=== PATIENT | female | born 1945 | race Caucasian/White ===

== ENCOUNTER 2019-12-14 20:20 | Observation (INO) ==
[2019-12-14] MEDS ORDERED: Furosemide 20 MG/2 ML VIAL IVP ONE (20:41)
[2019-12-14 21:01] LABS: Bilirubin,Urine Negative (Negative); Blood,Urine Trace-intact (Negative); Clarity,Urine Clear (Clear); Color,Urine Yellow (Yellow); Glucose,Urine (UA) Normal (Normal); Ketones,Urine Negative (Negative); Leukocyte Esterase,Urine Moderate (Negative); Nitrite,Urine Negative (Negative); PH,Urine 5.5 pH Units (5.0-8.0); Protein,Urine Negative (Neg-Trace); Specific Gravity,Urine 1.015 (1.010-1.025); Urobilinogen,Urine Normal (Normal)
[2019-12-14 21:05] LABS: Bacteria,Urine Moderate per hpf (None-Few); RBC,Urine 0-3 per hpf (0-3); Squamous Epithelial Cell,Urine Few per hpf (None-Few)
[2019-12-14 21:32] LABS: Basophils % 0.4 %; Eosinophils # 0.1 K/mcL (0.0-0.6); Eosinophils % 1.8 %; Hematocrit 40.6 % (35.3-44.9); Hemoglobin 13.6 g/dL (11.5-15.4); Immature Granulocytes % 0.3 % (0-4); Lymphocytes # 2.3 K/mcL (0.6-4.6); Mean Corpuscular HGB Conc 33.5 g/dL (31.6-35.5); Mean Corpuscular Volume 86.6 fL (83.0-100.0); Mean Platelet Volume 10.8 fL (9.4-12.4); Monocytes # 0.6 K/mcL (0.0-1.3); Neutrophils # 4.3 K/mcL (1.6-8.9); Platelet Count 327 K/mcL (140-400); Red Blood Count 4.69 M/mcL (3.82-4.97); Red Cell Distribution Width 13.2 % (11.5-14.5); Segmented Neutrophils % 58.5 %; White Blood Count 7.4 K/mcL (4.3-11.1)
[2019-12-14 21:37] LABS: Prothrombin Time 11.8 Seconds (9.4-12.1)
[2019-12-14 21:40] LABS: Activated Partial Thrombo Time 32.8 Seconds (26.0-36.0)
[2019-12-14] MEDS ORDERED: cefTRIAXone 1,000 MG in Water for inj. (sterile) 10 ML IVP ONE (21:41)
[2019-12-14 21:49] LABS: Alanine Aminotransferase 13 Units/L (7-52); Albumin 4.4 g/dL (3.5-5.7); Albumin/Globulin Ratio 1.6 (1.1-2.2); Alkaline Phosphatase 99 Units/L (34-104); Aspartate Amino Transferase 18 Units/L (13-39); BUN/Creatinine Ratio 14 (6-26); Bilirubin,Total 0.6 mg/dL (0.3-1.0); Blood Urea Nitrogen 12 mg/dL (8-23); Calcium 8.8 mg/dL (8.6-10.3); Carbon Dioxide 30 mEq/L (23-29); Chloride 100 mEq/L (98-107); Globulin 2.8 g/dL (2.4-3.5); Glucose 113 mg/dL (70-105); Magnesium 1.4 mg/dL (1.6-2.6); Osmolality,Calculated 291 (280-300); Potassium 2.9 mEq/L (3.5-5.1); Sodium 140 mEq/L (136-145); Total Protein 7.2 g/dL (6.4-8.9); eGFR For African Americans > 60 (> 60); eGFR For Non-African Americans > 60 (> 60)
[2019-12-14 21:53] LABS: Troponin I < 0.03 ng/mL (< 0.04)
[2019-12-14] MEDS ORDERED: Potassium Effervescent 25 MEQ TABLET.EFF PO ONE (23:16)
[2019-12-15] MEDS ORDERED: Naloxone 0.4 MG/ML INJ IVP PRN (00:12)
[2019-12-15] MEDS ORDERED: Ondansetron ODT 4 MG TAB.RAPDIS SL PRN (00:12)
[2019-12-15 03:58] LABS: Basophils % 0.3 %; Eosinophils # 0.1 K/mcL (0.0-0.6); Hematocrit 35.4 % (35.3-44.9); Immature Granulocytes % 0.3 % (0-4); Lymphocytes # 2.1 K/mcL (0.6-4.6); Lymphocytes % 33.3 %; Mean Corpuscular HGB Conc 33.9 g/dL (31.6-35.5); Mean Corpuscular Hemoglobin 29.1 pg (28.0-33.3); Mean Corpuscular Volume 85.7 fL (83.0-100.0); Mean Platelet Volume 10.2 fL (9.4-12.4); Monocytes # 0.7 K/mcL (0.0-1.3); Monocytes % 11.5 %; Neutrophils # 3.4 K/mcL (1.6-8.9); Platelet Count 290 K/mcL (140-400); Red Blood Count 4.13 M/mcL (3.82-4.97); Red Cell Distribution Width 13.2 % (11.5-14.5); Segmented Neutrophils % 52.6 %; White Blood Count 6.4 K/mcL (4.3-11.1)
[2019-12-15 04:22] LABS: BUN/Creatinine Ratio 16 (6-26); Blood Urea Nitrogen 11 mg/dL (8-23); Calcium 8.3 mg/dL (8.6-10.3); Carbon Dioxide 31 mEq/L (23-29); Chloride 103 mEq/L (98-107); Glucose 100 mg/dL (70-105); Magnesium 1.4 mg/dL (1.6-2.6); Osmolality,Calculated 291 (280-300); Potassium 3.5 mEq/L (3.5-5.1); Sodium 141 mEq/L (136-145); eGFR For African Americans > 60 (> 60); eGFR For Non-African Americans > 60 (> 60)
[2019-12-15] MEDS: *HR* Enoxaparin 40 MG/0.4 ML SYRINGE SQ SCH (06:00)
[2019-12-15] MEDS ORDERED: Furosemide 20 MG/2 ML VIAL IVP SCH (09:00)
[2019-12-15] MEDS: Vitamin E 200 UNIT (90MG) CAPSULE PO SCH (10:01)
[2019-12-15] MEDS: cefTRIAXone 1,000 MG in Water for inj. (sterile) 10 ML IVP SCH (10:01)
[2019-12-15] MEDS: Spironolactone 25 MG TABLET PO SCH (10:01)
[2019-12-15] MEDS ORDERED: Perflutren Lipid Microsphere 1.3 ML in 0.9 % Sodium Chloride 8.7 ML IVP PRN (10:50)
[2019-12-15] MEDS: Magnesium Oxide 400 MG TABLET PO SCH ×2 (12:58→21:20)
[2019-12-15] MEDS: Furosemide 20 MG/2 ML VIAL IVP SCH (21:22)
[2019-12-16] MEDS: *HR* Enoxaparin 40 MG/0.4 ML SYRINGE SQ SCH (04:50)
[2019-12-16 05:23] LABS: Basophils % 0.6 %; Eosinophils # 0.1 K/mcL (0.0-0.6); Eosinophils % 2.7 %; Hemoglobin 12.1 g/dL (11.5-15.4); Immature Granulocytes % 0.4 % (0-4); Lymphocytes # 1.9 K/mcL (0.6-4.6); Lymphocytes % 39.3 %; Mean Corpuscular HGB Conc 33.6 g/dL (31.6-35.5); Mean Corpuscular Hemoglobin 29.2 pg (28.0-33.3); Mean Corpuscular Volume 86.7 fL (83.0-100.0); Mean Platelet Volume 10.6 fL (9.4-12.4); Monocytes # 0.6 K/mcL (0.0-1.3); Monocytes % 11.7 %; Neutrophils # 2.2 K/mcL (1.6-8.9); Platelet Count 281 K/mcL (140-400); Red Blood Count 4.15 M/mcL (3.82-4.97); Red Cell Distribution Width 13.4 % (11.5-14.5); Segmented Neutrophils % 45.3 %; White Blood Count 4.8 K/mcL (4.3-11.1)
[2019-12-16 05:42] LABS: BUN/Creatinine Ratio 20 (6-26); Blood Urea Nitrogen 13 mg/dL (8-23); Calcium 8.2 mg/dL (8.6-10.3); Carbon Dioxide 31 mEq/L (23-29); Chloride 102 mEq/L (98-107); Glucose 102 mg/dL (70-105); Osmolality,Calculated 292 (280-300); Potassium 2.9 mEq/L (3.5-5.1); Sodium 141 mEq/L (136-145); eGFR For African Americans > 60 (> 60); eGFR For Non-African Americans > 60 (> 60)
[2019-12-16] MEDS ORDERED: Acetaminophen 325 MG TABLET PO PRN (09:45)
[2019-12-16] MEDS: Magnesium Oxide 400 MG TABLET PO SCH (09:48)
[2019-12-16] MEDS: Spironolactone 25 MG TABLET PO SCH (09:48)
[2019-12-16] MEDS: Vitamin E 200 UNIT (90MG) CAPSULE PO SCH (09:48)
[2019-12-16] MEDS: Furosemide 20 MG/2 ML VIAL IVP SCH (09:49)
[2019-12-16] MEDS: cefTRIAXone 1,000 MG in Water for inj. (sterile) 10 ML IVP SCH (09:49)
[2019-12-16] MEDS ORDERED: Potassium Chloride Elixir 20 MEQ/15 ML UDC PO ONE ×2 (10:05→12:00)
[2019-12-16 15:36] LABS: BUN/Creatinine Ratio 18 (6-26); Blood Urea Nitrogen 14 mg/dL (8-23); Calcium 8.4 mg/dL (8.6-10.3); Carbon Dioxide 27 mEq/L (23-29); Chloride 104 mEq/L (98-107); Glucose 121 mg/dL (70-105); Osmolality,Calculated 292 (280-300); Sodium 140 mEq/L (136-145); eGFR For African Americans > 60 (> 60); eGFR For Non-African Americans > 60 (> 60)
[2019-12-16 16:23] VITALS: BP 129/71
[2019-12-16] MEDS ORDERED: Potassium Chloride Elixir 20 MEQ/15 ML UDC PO SCH (21:00)
== END 2019-12-16 18:32 | disposition home or self-care (01) ==
LOC: INPGRE 20:20 → EMEROOGRE 20:20 → INPGRE 23:54
PROVIDERS: ADMIT Family Medicine; ATTEND Family Medicine